=== PATIENT | male | born 1965 | race Caucasian/White ===

== ENCOUNTER 2022-05-25 20:22 | Inpatient (IN) | payer OTHER ==
[~2022-05-25] VITALS: Ht 188 cm; Wt 101.6 kg
[~2022-05-25 20:22] MED LIST: CARV12.548 PO; FURO-149 PO; METO5TAB9 PO; METR500T PO; POTA10TA15 PO; SULF1TAB48 PO; WARF5TAB2 PO
--- NOTE | 2022-05-25 20:30 | NUR ---
back from CT SCAN DEPT vitals updated pt in severe pain score 04/20.medicated as ordered
[2022-05-25 20:32] VITALS: BP_SYST 197
--- NOTE | 2022-05-25 20:40 | NUR ---
PT HERE FOR SEVER ABD PAIN WITH NAUSEA SINCE THIS AM. PER CHRISTOPHER AT BEDSIDE PT HAVE FEVER AND CHILLS AT HOME WEE. SHE STATED THAT HE HAS THE SAME SYMPTOMS WHEN HE WAS DX WITH SBO. PMh: SBO,PACEMAKER,DM,HTN, STASIS ULCER PT AAOX4 AT THIS TIME, ASSISTED TO ROOM VIA WHEELCHAIR, GOWNED AND PLACED IN CARDIAC MONITORS.
[2022-05-25 21:13] LABS: BASOPHILS % (AUTO) 0.2 % (0.0-2.0); EOSINOPHILS % (AUTO) 0.2 % (0.0-4.0); HEMATOCRIT 43.3 % (36-54); HEMOGLOBIN 14.6 g/dL (14.0-18.0); LYMPHOCYTES # (AUTO) 0.6 K/uL (1.0-5.5); LYMPHOCYTES % (AUTO) 2.8 % (20.5-51.5); MEAN CORPUSCULAR HEMOGLOBIN 28 pg (27-31); MEAN CORPUSCULAR HGB CONC 34 % (32-36); MEAN CORPUSCULAR VOLUME 82 fL (79.0-98.0); MONOCYTES # (AUTO) 0.8 K/uL (0.0-1.0); NEUTROPHILS # (AUTO) 18.4 K/uL (1.8-7.7); NEUTROPHILS % (AUTO) 92.8 % (40.0-70.0); PLATELET COUNT (AUTO) 192 K/uL (130-430); RED BLOOD CELL COUNT(AUTO) 5.29 MIL/uL (4.2-6.2); RED CELL DISTRIBUTION WIDTH 17.2 % (9.0-15.0); WHITE BLOOD COUNT (AUTO) 19.8 K/uL (4.8-10.8)
[2022-05-25] MEDS ORDERED: PIPERACILLIN/TAZO 3.375 GM in NS 50 ML IV ONE (21:45)
[2022-05-25] MEDS ORDERED: NS 500 ML IV ONE (22:00)
[2022-05-25] MEDS ORDERED: MORPHINE 4 MG INJ. 4 MG/ML VIAL IVP ONE (22:00)
[2022-05-25] MEDS ORDERED: ONDANSETRON HCL 4 MG/2 ML VIAL IVP ONE (22:00)
--- NOTE | 2022-05-25 22:00 | NUR ---
PT CLEANED AND LINEN CHANGED. BY BEDSIDE ,PT MEDICATED ORDERED
[2022-05-25] MEDS ORDERED: PIPERACILLIN/TAZOBACTAM 3.375 GM/VIAL (ZOSYN) IV ONE (22:16)
[2022-05-25 22:32] LABS: ANION GAP 8 (5-15); CALCIUM 8.7 mg/dL (8.4-11.0); CHLORIDE 98 mmol/L (98-107); CREATININE 1.27 mg/dL (0.55-1.30); GLUCOSE 136 mg/dL (70-99); SODIUM SERUM 133 mmol/L (136-145); UREA NITROGEN, BLOOD 14 mg/dL (8-21)
[2022-05-25 22:46] LABS: ALANINE AMINOTRANSFERASE 33 U/L (12-78); ALBUMIN 3.2 g/dL (3.4-4.8); ASPARTATE AMINOTRANSFERASE 31 U/L (10-37); TOTAL BILIRUBIN 1.9 mg/dL (0.0-1.0)
[2022-05-25] MEDS ORDERED: NACL 0.9% 1,000 ML IV ONE ×2 (23:00)
[2022-05-25] MEDS ORDERED: ACETAMINOPHEN 650 MG SUPP.RECT RC ONE (23:00)
[2022-05-25] MEDS ORDERED: ACETAMINOPHEN 325 MG SUPP.RECT RC ONE (23:00)
--- NOTE | 2022-05-25 23:00 | NUR ---
vitals done and charted .awaits labs
[2022-05-25 23:01] LABS: GFR AFRICAN AMERICAN 76 mL/min (>90)
--- NOTE | 2022-05-26 | NUR ---
PTS VITALS DONE ,SETTLED IN BED
--- NOTE | 2022-05-26 00:30 | NUR ---
Given a warm bedbath and linen changed .pt asleep
--- NOTE | 2022-05-26 00:41 | NUR ---
WOUND ON LEFT LEFT IRRIGATED WITH 50% BETADINE AND THEN STERILE SALINE. PREVIOUS 4X4 REMOVED. WOUND DRESSED WITH ADAPTIC GAUZE FOLLOWED BY GAUZE ROLL.
[2022-05-26] MEDS ORDERED: ACETAMINOPHEN 325 MG TABLET PO PRN (00:45)
[2022-05-26] MEDS ORDERED: INSULIN REGULAR, HUMAN 100 UNITS/ML, 10 ML VIAL (humuLIN R) SUBCUT PRN (00:45)
[2022-05-26] MEDS ORDERED: ONDANSETRON HCL 4 MG/2 ML VIAL IVP PRN (00:45)
[2022-05-26] MEDS ORDERED: cloNIDine HCL 0.1 MG TABLET PO PRN (00:45)
--- NOTE | 2022-05-26 00:51 | NUR ---
Admit bed requested Patient will be admitted to care of . Admitted to TELE unit. Diagnosis SEPSIS Inpatient (Yes or No) YES Observation (Yes or No) NO Orientation concerns or request close to nursing station (Yes or No) NO Covid Status NEGATIVE On vent or bipap NO Isolation requirements NO Needs a sitter NO From Home (Yes or if No enter name of facility) YES Requires Dialysis (Yes or No) NO Med Rec Completed (Yes of No) PENDING
[2022-05-26] MEDS: LR 1,000 ML IV SCH ×2 (01:28→12:55)
[2022-05-26] MEDS ORDERED: VANCOMYCIN HCL 1000 MG/VIAL IV ONE (01:39)
[2022-05-26] MEDS ORDERED: VANCOMYCIN HCL 1 GM/NS PREMIX 250 ML IV ONE (02:00)
--- NOTE | 2022-05-26 02:00 | NUR ---
PT SAYS HE FEELS ALITTLE BETTER AFTER RX ,TEMP 97.2
[2022-05-26] MEDS ORDERED: PIPERACILLIN/TAZO 3.375 GM in NS 50 ML IV SCH (06:00)
--- NOTE | 2022-05-26 06:00 | NUR ---
DUE RX GIVEN .VITALS UPDATED TEMP 97.5 LINEN CHANGED
--- NOTE | 2022-05-26 06:30 | NUR ---
PT HAD A SMALL BM, NO N/V
[2022-05-26] MEDS ORDERED: PIPERACILLIN/TAZOBACTAM 3.375 GM/VIAL (ZOSYN) IV ONE (06:39)
--- NOTE | 2022-05-26 07:12 | NUR ---
BLOOD SUGAR 85.PT HAS TAKEN X 2 ORANGE JUICE,APPLE JUICE AND JELLO
--- NOTE | 2022-05-26 07:30 | NUR ---
Assumed care of pt and pt is in bed resting with no s/s of distress. Connected to substation superintendent and VSS. Respirations even and unlabored. A&Ox4. Skin and cranial nerves intact. No sob and no chest pain. Denies n/v. Pt has a 20g on right hand and another 20g on left forearm intact no infiltration noted. Bed in lowest position and safety checks done.
--- NOTE | 2022-05-26 08:00 | NUR ---
Rechecked Temp and is at 99.5F. PRN tylenol will be given PO. Pt has no c/o.
--- NOTE | 2022-05-26 08:26 | NUR ---
Pt refusing breakfast at this time.
--- NOTE | 2022-05-26 09:00 | NUR ---
Removed blanket pt had on him and cooling measures provided to decrease fever pt has. Pt has no c/o. A&Ox4.
--- NOTE | 2022-05-26 09:30 | NUR ---
Dr. Yan at bedside assessing pt.
[2022-05-26] MEDS: VANCOMYCIN HCL 1,500 MG in NS 250 ML IV SCH ×2 (10:05→22:06)
--- NOTE | 2022-05-26 10:05 | NUR ---
Vancomycin initiated running at 125ml/hr to infuse over 2 hours. Pt has no c/o. VSS.
[2022-05-26 11:40] VITALS: BP_SYST 128
--- NOTE | 2022-05-26 11:55 | NUR ---
Patient will be admitted to care of Dr. Cabrera. Admitted to Tele unit. Will go to room 100A. Belongings list completed. Complete and up to date summary report printed. SBAR report to be given at bedside with opportunity for questions.
--- NOTE | 2022-05-26 12:00 | NUR ---
RECEIVED PT FROM ONESIMO VALDOVINOS. PT IS AAOX4. TELEMONITOR PLACED READING NSR. RESP E/U. ON R/A. ABDOMEN SOFT, NONTENDER, NONDISTENDED. BOWEL SOUNDS ACTIVE. BLE 3+ EDEMA WITH R LEG WOUND COVERED WITH DRESSING. BLE DRYNESS AND DISCOLORATION. DISTAL PULSES NORMAL. SKIN WARM. IV CATH TO RIGHT WRIST S/L. DRESSING CDR, SITE WNL. PT DENIES PAIN. ORIENTED TO ROOM AND CALL LIGHT. SIDERAILS UP X2.
--- NOTE | 2022-05-26 12:06 | NUR ---
CONSULTATION PAGED REASON FOR CONSULTATION SEPSIS WAS CONSULT CALED?Y PERSON WHO WAS NOTIFIED:JUAN DIEGO CONSULTING PHYSICIAN:GERARD [facility] INFORMATION MANAGERS SPECIALTY:ID HEALTH INFORMATION MANAGERS PHONE [phone]: REQUESTING PHYSICIAN:EMILY TORREZ
--- NOTE | 2022-05-26 12:45 | NUR ---
BS 80, NO INSULIN GIVEN PER RISS. PT EATING CLEAR LIQUID DIET AT THIS TIME. LR AT 30ML/HOUR INITIATED.
[2022-05-26] MEDS: PIPERACILLIN/TAZO 3.375 GM in NS 50 ML IV SCH ×2 (12:55→18:08)
[2022-05-26 13:43] LABS: INR 1.3 (0.80-1.20); PROTHROMBIN TIME 14.1 SECS (9.5-12.5)
--- NOTE | 2022-05-26 15:12 | NUR ---
JADA COOK NIGHT STATED SHE WILL MAKE DR. Sanchez AWARE OF NEED TO CONSULT THIS PT.
--- NOTE | 2022-05-26 15:50 | NUR ---
NOTES: RONEN Barbour placed consult with Dr. Marcial
[2022-05-26 16:00] VITALS: BP_SYST 132
[2022-05-26] MEDS: POTASSIUM CHLORIDE 10 MEQ TAB.PRT.SR PO SCH ×2 (16:52→21:02)
--- NOTE | 2022-05-26 17:46 | NUR ---
CONSULTATION PAGED REASON FOR CONSULTATION:LOW SATURATION WAS CONSULT CALED?Y PERSON WHO WAS NOTIFIED:CIARA CONSULTING PHYSICIAN:DWAINE LEOS PERFECT BIND MACHINE OPERATOR SPECIALTY:PULMONARY PERFECT BIND MACHINE OPERATOR PHONE NUMBER:[phone] REQUESTING PHYSICIAN:CYNDI PICKETT
[2022-05-26] MEDS ORDERED: IPRATROPIUM/ALBUTEROL SULFATE 3 ML AMPUL.NEB (DUONEB) ONE (17:54)
--- NOTE | 2022-05-26 18:12 | NUR ---
BS 94. NO INSULIN GIVEN PER RISS. SCHEDULED MED GIVEN. PT ON N/S AT 4LPM O2 SAT 98%. DENIES PAIN.
--- NOTE | 2022-05-26 18:12 | NUR ---
RT MADE AWARE PT HAS ORDER FOR BREATHING TX.
[2022-05-26] MEDS ORDERED: IPRATROPIUM/ALBUTEROL SULFATE 3 ML AMPUL.NEB (DUONEB) INH PRN (19:15)
[2022-05-26] MEDS: IPRATROPIUM/ALBUTEROL SULFATE 3 ML AMPUL.NEB (DUONEB) INH SCH (19:25)
--- NOTE | 2022-05-26 19:49 | NUR ---
RECEIVED ORDER FROM DR. MATT ARGUELLO STAT, VQ SCAN, US VENOUS BLE STAT, DUONEB PRN Q 2 HOURS. ORDERS CARRIED. ENDORSED PT TO ONESIMO GALLRADO AND MADE HER AWARE OF NEW ORDERS. ALL QUESTIONS AND CONCERNS ADDRESSED.
--- NOTE | 2022-05-26 20:01 | NUR ---
RECEIVED PT LYING IN BED, RR 28, O2 SAT99% ON 3L NC. IV TO LT WRIST AND RT HAND SITES CDI. EDEMA TO SCROTUM, BLE. DRSG TO RLE SMALL AMOUNT OF DRAINAGE NOTED, FOUL SMELL. WILL NEED TO DO DRSG CHANGE. WEAK PULSES TO BLE. DISCOLORIZTION NOTED TO BLE. Addendum: 05/26/22 at 2056 by [facility], ONESIMO ECHOLS 2044: WAS NOTIFIED PT IS POSITIVE FOR DVT, DR SABRINA ALONZO.
[2022-05-26] MEDS ORDERED: WARFARIN SODIUM 5 MG TABLET PO SCH (21:00)
[2022-05-26] MEDS: CARVEDILOL 12.5 MG TABLET (COREG) PO SCH (21:04)
--- NOTE | 2022-05-26 21:45 | NUR ---
CRITICAL LAB Positive DVT Dr. Deborah ford, notified Orders lovenox 1mg/kg q12h subq
[2022-05-26] MEDS: ENOXAPARIN SODIUM 100 MG/ML SYRINGE SUBCUT SCH (22:09)
--- NOTE | 2022-05-26 22:38 | NUR ---
2239: DR WORTHINGTON AT BEDSIDE, SHOWED HIM THE ABG RESULTS, NO NEW ORDERS. Addendum: 05/27/22 at 0516 by Onle Griffin RN RN 0400: WOUND CARE DONE TO RLE, PICTURES TAKEN.
[2022-05-27] VITALS (7 sets, daily range): BP systolic 114–142
[2022-05-27] MEDS: PIPERACILLIN/TAZO 3.375 GM in NS 50 ML IV SCH ×3 (00:48→12:32)
[2022-05-27] MEDS: IPRATROPIUM/ALBUTEROL SULFATE 3 ML AMPUL.NEB (DUONEB) INH SCH ×4 (01:39→20:01)
[2022-05-27] MEDS: POTASSIUM CHLORIDE 10 MEQ TAB.PRT.SR PO SCH ×3 (08:41→20:34)
[2022-05-27] MEDS: metOLazone 5 MG TABLET PO SCH (08:42)
[2022-05-27] MEDS: FUROSEMIDE 40 MG TABLET PO SCH (08:43)
[2022-05-27] MEDS: CARVEDILOL 12.5 MG TABLET (COREG) PO SCH ×2 (08:44→20:35)
[2022-05-27 08:58] LABS: BASOPHILS # (AUTO) 0.1 K/uL (0.0-0.2); BASOPHILS % (AUTO) 0.6 % (0.0-2.0); EOSINOPHILS % (AUTO) 0.1 % (0.0-4.0); HEMATOCRIT 40.3 % (36-54); HEMOGLOBIN 13.6 g/dL (14.0-18.0); MEAN CORPUSCULAR HEMOGLOBIN 28 pg (27-31); MEAN CORPUSCULAR HGB CONC 34 % (32-36); MEAN CORPUSCULAR VOLUME 82 fL (79.0-98.0); MONOCYTES # (AUTO) 0.4 K/uL (0.0-1.0); MONOCYTES % (AUTO) 4.5 % (1.7-9.3); NEUTROPHILS # (AUTO) 7.8 K/uL (1.8-7.7); NEUTROPHILS % (AUTO) 83.8 % (40.0-70.0); PLATELET COUNT (AUTO) 113 K/uL (130-430); RED BLOOD CELL COUNT(AUTO) 4.91 MIL/uL (4.2-6.2); RED CELL DISTRIBUTION WIDTH 17.2 % (9.0-15.0); WHITE BLOOD COUNT (AUTO) 9.3 K/uL (4.8-10.8)
[2022-05-27] MEDS ORDERED: *LOVENOX 1MG/KG Q12H/PHARMACY XX SCH (09:00)
[2022-05-27 09:17] LABS: ALBUMIN 2.3 g/dL (3.4-4.8); CALCIUM 7.9 mg/dL (8.4-11.0); POTASSIUM 3.8 mmol/L (3.5-5.1); TOTAL BILIRUBIN 0.8 mg/dL (0.0-1.0)
[2022-05-27 09:26] LABS: CREATININE 1.27 mg/dL (0.55-1.30)
[2022-05-27 09:52] LABS: INR 1.3 (0.80-1.20); PROTHROMBIN TIME 13.2 SECS (9.5-12.5)
[2022-05-27] MEDS: ENOXAPARIN SODIUM 100 MG/ML SYRINGE SUBCUT SCH ×2 (10:03→21:21)
[2022-05-27] MEDS: VANCOMYCIN HCL 1,500 MG in NS 250 ML IV SCH ×2 (10:04→21:21)
--- NOTE | 2022-05-27 10:29 | NUR ---
CONSULTATION PAGED REASON FOR CONSULTATION:CHF WAS CONSULT CALLED?Y -PERSON WHO WAS NOTIFIED:EXCHANGE CONSULTING PHYSICIAN:ANGE SAHA HARNESS TIER SPECIALTY:CARDIO HARNESS TIER PHONE NUMBER:[phone] REQUESTING PHYSICIAN:CANDELARIA TORREZ
--- NOTE | 2022-05-27 10:36 | NUR ---
0800 PT IN BED A/OX4. RES EVENA ND UNLABORED. ON 2 L OXYGEN SATURATION 96%. MILD SOB NOTED. NOT IN ACUTE RES DISTRESS. HOB ELEVATED. SAFTEY AND FALL PRECAUTIONS IN PLACE. IVF INFUSING WELL ORDERED. WILL CONTINUE TO MONITOR 1000- NUCLEAR MED IS DOWN PER RADIOLOGY , PT SCHEDULED TO HAVE VQ SCAN.UNABLE TO O THIS TIME. CALLED DR GUTIERREZ AND NOTIFIED ABOUT IT. NO NEW ORDERED RECEIVED
[2022-05-27] MEDS: LR 1,000 ML IV SCH (13:28)
--- NOTE | 2022-05-27 16:00 | NUR ---
pt stable notin acute distress. ambulated to bathroom with steady gait. denies any sob. needs attended
--- NOTE | 2022-05-27 17:45 | NUR ---
CONSULTATION PAGED REASON FOR CONSULTATION:WOUND TREATMENT AND BX WAS CONSULT CALLED?Y -PERSON WHO WAS NOTIFIED:NICKY CONSULTING PHYSICIAN:AMY BUENO MANAGER COMMUNITY RELATIONS SPECIALTY:SURGEON MANAGER COMMUNITY RELATIONS PHONE NUMBER:[phone] REQUESTING PHYSICIAN:CANDELARIA TORREZ
--- NOTE | 2022-05-27 17:52 | NUR ---
CONSULTATION PAGED REASON FOR CONSULTATION:ABNORMAL CT ABDOMEN WAS CONSULT CALLED?Y -PERSON WHO WAS NOTIFIED:PASTORA CONSULTING PHYSICIAN:PRAVEENA RAMIRES ( WOOD SCRAP HANDLER) PRODUCTION LEADER SPECIALTY:GI PRODUCTION LEADER PHONE NUMBER:[phone] REQUESTING PHYSICIAN:EMILY TORREZ MEDICARE PT A ONLY INSURANCE
--- NOTE | 2022-05-27 18:03 | NUR ---
CONSULTATION PAGED REASON FOR CONSULTATION:CARDIAC CLEARANCE FOR SURGERY WAS CONSULT CALLED?Y -PERSON WHO WAS NOTIFIED:VEE RAJPUT INFOMRED CONSULTING PHYSICIAN:VEE RAJPUT HYDRATE THICKENER OPERATOR SPECIALTY:CARDIO HYDRATE THICKENER OPERATOR PHONE NUMBER:[phone] REQUESTING PHYSICIAN:CANDELARIA TORREZ
--- NOTE | 2022-05-27 19:43 | NUR ---
closing notes PT IN BED A/OX4. RES EVENA ND UNLABORED. ON 2 L OXYGEN SATURATION 96%. MILD SOB NOTED. NOT IN ACUTE RES DISTRESS. HOB ELEVATED. SAFTEY AND FALL PRECAUTIONS IN PLACE. IVF INFUSING WELL ORDERED.NEEDS ATTENDED . REPORT GIVEN TO NIGHT NURSE
[2022-05-27] MEDS: metroNIDAZOLE 500 mg/NS 100 ML IV SCH (21:21)
[2022-05-27] MEDS: HYDROcodone/ACETAMIN 10-325 MG TAB PO PRN (22:47)
[2022-05-28] VITALS: BP_SYST 130
[2022-05-28] MEDS: IPRATROPIUM/ALBUTEROL SULFATE 3 ML AMPUL.NEB (DUONEB) INH SCH ×4 (05:44→19:57)
[2022-05-28] MEDS: metroNIDAZOLE 500 mg/NS 100 ML IV SCH ×3 (06:39→21:18)
[2022-05-28] MEDS: MORPHINE 4 MG INJ. 4 MG/ML VIAL IVP PRN ×3 (06:49→21:27)
[2022-05-28 06:58] LABS: ALBUMIN 2.2 g/dL (3.4-4.8); CALCIUM 8.2 mg/dL (8.4-11.0); CREATININE 0.9 mg/dL (0.55-1.30); POTASSIUM 3.3 mmol/L (3.5-5.1); THYROID STIMULATING HORMONE 1.89 uIu/mL (0.36-3.74); TOTAL BILIRUBIN 0.7 mg/dL (0.0-1.0)
[2022-05-28 08:00] VITALS: BP_SYST 131
--- NOTE | 2022-05-28 08:00 | NUR ---
OPENING NOTE Patient awake sitting up in bed eating breakfast. No sign of distress and patient states that his pain is 2/10. IV sites are clean, dry, intact, and running prescribed fluids. Patient denies any nausea. Wound dressing is clean, dry, and intact. All needs met at this time and safety checks made.
[2022-05-28 09:10] LABS: INR 1.3 (0.80-1.20); PROTHROMBIN TIME 13.8 SECS (9.5-12.5)
[2022-05-28] MEDS: metOLazone 5 MG TABLET PO SCH (09:29)
[2022-05-28] MEDS: POTASSIUM CHLORIDE 10 MEQ TAB.PRT.SR PO SCH ×3 (09:29→21:18)
[2022-05-28] MEDS: FUROSEMIDE 40 MG TABLET PO SCH (09:30)
[2022-05-28] MEDS: ENOXAPARIN SODIUM 100 MG/ML SYRINGE SUBCUT SCH ×2 (09:30→21:18)
[2022-05-28] MEDS: CARVEDILOL 12.5 MG TABLET (COREG) PO SCH ×2 (09:30→21:18)
[2022-05-28] MEDS: VANCOMYCIN HCL 1,500 MG in NS 250 ML IV SCH ×2 (10:19→21:17)
--- NOTE | 2022-05-28 11:51 | NUR ---
NPO Patient made NPO per Dr Caban. Patient is aware and verbalized understanding.
[2022-05-28 12:06] VITALS: BP_SYST 123
--- NOTE | 2022-05-28 12:30 | NUR ---
AT BEDSIDE Dr Caban at bedside to see the patient. Per MD, wound debridement is not necessary at this time. Diet resumed.
[2022-05-28] MEDS: LR 1,000 ML IV SCH (13:28)
--- NOTE | 2022-05-28 15:00 | NUR ---
WOUND EVALUATION: Late note for 05/28/2022 at 1500 secondary to patient care. Wound Consult received from Dr. Cabrera. Thank you, Dr. Cabrera, for the consult. Patient received in a Mallard Bed with an IsoFlex DEEPIKA mattress, awake, alert, and oriented. Patient is able to turn in bed independently. Mariano Score is a 17. Past Medical History: Cardiomyopathy, Diabetes Mellitus, Chronic Atrial Fibrillation, history of pacemaker implant, dilated CMP, Chronic CHF, Hypertension, Venous Stasis of both lower legs with ulceration of right lower leg maintained on warfarin for DVT and PE, with recent skin graft to the right distal anterior leg about 2 months ago. Recent Labs: WBC 9.3, RBC 4.91, hemoglobin 13.6, hematocrit 40.3, platelets 113, sodium 134, potassium 3.3, calcium 8.2, AST 60, BNP 217, POC glucose 136, albumin 2.2, Glucose 90. Intrinsic factors that delay wound healing: Cardiomyopathy, Diabetes Mellitus, Chronic Atrial Fibrillation, Venous Stasis of both lower legs, Hyperglycemia, Hypoalbuminemia. Extrinsic factors that delay wound healing: Decreased mobility. Microbiology: Miscellaneous culture results positive for MRSA and Strep Angino/S Dysgalac (GRP C). Patient said that he has been seeing a doctor in outpatient setting for his right lower extremity ulcer. He said that the doctor wanted him to keep the wound dry and the eschar with, and that he would follow-up with that doctor soon. Wound Assessment: 1. Right Distal Anterior Garcia: Acute on chronic venous insufficiency ulcer with recent skin graft about 2 months ago, present on admission. Wound bed has 70% black eschar, 20% yellow slough, 10% red tissue. No odor, scant sanguineous drainage. Periwound intact. Wound measures 12.2 cm x 8.5 cm. Recommend: [place] wound with Betadine, allow Betadine to air dry. Apply SurePrep to gulshan-wound. Cover site with nonadhesive foam dressing. Wrap with Hua wrap. Perform wound care daily, and as needed for dressing soiling or dislodgement. Also recommend: Encourage and assist patient as needed with repositioning every 2 hours with pillow support and off-load pressure areas with pillows for pressure re-distribution. Offload, elevate and float bilateral heels with pillows. Perform skin care and monitor skin integrity Q shift.
[2022-05-28 16:00] VITALS: BP_SYST 119
--- NOTE | 2022-05-28 16:25 | NUR ---
IV REMOVED IV on left wrist became infiltrated and painful. Removed and intact, no active bleeding. Patient tolerated well. All needs met at this time and safety checks made.
--- NOTE | 2022-05-28 19:15 | NUR ---
CLOSING NOTE Patient sitting in bed resting after eating dinner. No sign of distress, patient states that his pain is 8/10 at this time but does not want pain medications at this time. Patient able to ambulate with steady gait to the restroom. Dressing on right lower leg is clean, dry, and intact. Nasal cannula in place on 2L, oxygen saturation 95%. Patient was given medical release forms to request charts from [facility] [place], patient states he will fill them out with his this evening. Night nurse is aware and will follow up. All needs met at this time and safety checks made. Endorsed to social work coordinator nurse.
--- NOTE | 2022-05-28 19:30 | NUR ---
Opening note Received report from day shift nurse. Pt is awake lying in bed with at bedside. No s/s of respiratory distress. Breathing even and unlabored on 2L nasal cannula saturating 96-97%. Iv site intact and patent saline lock. Fall and safety precautions in place with bed in lowest position and call light within reach
[2022-05-28 20:00] VITALS: BP_SYST 125
[2022-05-29] VITALS: BP_SYST 123
--- NOTE | 2022-05-29 00:15 | NUR ---
Rounds Pt resting in bed, eyes closed. No s/s of acute distress. VSS. Fall and safety checks in place
[2022-05-29] MEDS: IPRATROPIUM/ALBUTEROL SULFATE 3 ML AMPUL.NEB (DUONEB) INH SCH ×4 (01:09→19:47)
[2022-05-29] MEDS: metroNIDAZOLE 500 mg/NS 100 ML IV SCH ×3 (06:08→21:13)
--- NOTE | 2022-05-29 06:57 | NUR ---
Closing note Pt resting in bed, eyes closed. No s/s of respiratory distress. Breathing even and unlabored on nasal cannula. IV site intact and patent saline lock. Fall and safety precautions in place with bed in lowest position, bed alarm on,and call light within reach. All need met throughout shift. Will endorse care to day shift nurse
[2022-05-29 07:45] LABS: BASOPHILS % (AUTO) 0.4 % (0.0-2.0); EOSINOPHILS # (AUTO) 0.2 K/uL (0.0-0.4); EOSINOPHILS % (AUTO) 1.4 % (0.0-4.0); HEMATOCRIT 42.6 % (36-54); HEMOGLOBIN 14.6 g/dL (14.0-18.0); LYMPHOCYTES # (AUTO) 1.9 K/uL (1.0-5.5); LYMPHOCYTES % (AUTO) 15.8 % (20.5-51.5); MEAN CORPUSCULAR HEMOGLOBIN 28 pg (27-31); MEAN CORPUSCULAR HGB CONC 34 % (32-36); MEAN CORPUSCULAR VOLUME 81 fL (79.0-98.0); MONOCYTES # (AUTO) 1.3 K/uL (0.0-1.0); NEUTROPHILS # (AUTO) 8.5 K/uL (1.8-7.7); NEUTROPHILS % (AUTO) 71.4 % (40.0-70.0); PLATELET COUNT (AUTO) 128 K/uL (130-430); RED BLOOD CELL COUNT(AUTO) 5.27 MIL/uL (4.2-6.2); RED CELL DISTRIBUTION WIDTH 16.8 % (9.0-15.0)
[2022-05-29 08:00] VITALS: BP_SYST 114
[2022-05-29 08:08] LABS: INR 1.1 (0.80-1.20); PROTHROMBIN TIME 11.5 SECS (9.5-12.5)
[2022-05-29 08:22] LABS: ALBUMIN 2.5 g/dL (3.4-4.8); CALCIUM 8.4 mg/dL (8.4-11.0); CREATININE 0.92 mg/dL (0.55-1.30); POTASSIUM 3.7 mmol/L (3.5-5.1); TOTAL BILIRUBIN 0.7 mg/dL (0.0-1.0)
[2022-05-29] MEDS: CARVEDILOL 12.5 MG TABLET (COREG) PO SCH ×2 (09:03→21:13)
[2022-05-29] MEDS: FUROSEMIDE 40 MG TABLET PO SCH (09:03)
[2022-05-29] MEDS: metOLazone 5 MG TABLET PO SCH (09:04)
[2022-05-29] MEDS: ENOXAPARIN SODIUM 100 MG/ML SYRINGE SUBCUT SCH ×2 (09:04→21:14)
[2022-05-29] MEDS: POTASSIUM CHLORIDE 10 MEQ TAB.PRT.SR PO SCH ×3 (09:04→21:12)
[2022-05-29] MEDS: VANCOMYCIN HCL 1,500 MG in NS 250 ML IV SCH ×2 (09:04→23:57)
[2022-05-29] MEDS ORDERED: DIATR MEGLU/DIATRIZ SOD 30 ML SOLUTION PO ONE (09:07)
[2022-05-29] MEDS: MORPHINE 4 MG INJ. 4 MG/ML VIAL IVP PRN ×2 (09:10→21:25)
[2022-05-29] MEDS ORDERED: iohexoL 350 mgI/mL, 100 ML INFUS..BTL IV ONE (11:20)
[2022-05-29 12:00] VITALS: BP_SYST 122
--- NOTE | 2022-05-29 15:18 | NUR ---
Nutrition Assessment Nutritional Screening High Risk Screening Admitting Diagnosis: Sepsis Reviewed Pertinent Medical/Surgical Hx Medical Record Patient Medical History Comment: PMH: Chronic A.fib, hx pacemaker placement, CHF - chronic systolic and diastolic, dilated CMP s/p stent, DM, HTN, cardiomyopathy, venous statis BL-lower legs with ulceration of R-lower leg, on warfarin for DVT/PE. Subjective Information Per EMR: 56yM who presented to ED with worsening wound. 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 Patient reports increased pain, erythema, and drainage that is malorodous. Pt is also reporting generalized weakness. Patient was found to be septic in ED and admitted to telemetry. RD spoke with patient at bedside. Patient endorses a following a regular diet at home and states he doesn't eat or like "vegetables- onions or green things"; Usual intake includes occasionally breakfast, but most days 1 large dinner and multiple snacks/small meals throughout the day. Per pt, LBM 05/28. Patient states he "is not diabetic" and he does not understand why an MD he saw recently said he is. RD will continue to monitor. Current Diet Order/Nutrition Support: Consistent CHO x 1 day Patient/Significant Other Able To Verbalize Education Provided Indicated Pertinent Medications Morphine, metronidazole, lasixm metolazone, lovenox, K-dur, abx, norco Pertinent Labs WBC 12 H, BG 118 H, POC BG 111H, BNP 141 H, CO2 30H, Alb 2.5 L, h/h WNL Height (Feet) 6 feet Height (Inches) 2.00 inches Weight (Pounds) 224 pounds Weight (Calculated Kilograms) 101.818244 kilograms Patient Weight 101.605 kg Body Mass Index 28.76 kg/m2 %IBW 118 [place]/Adjusted Body Weight 190lbs/ 86.4kg Recent Weight Change No Weight Status Overweight Gastrointestinal Symptoms None Last BM May 28, 2022 Food Allergies No Usual Diet At Home Regular Skin Integrity Comment: Mariano 18: - Lower leg discoloration - Lower R-leg wound: s/p skin graft x 2 months. Now w/ increased pain, erythema, and malodorous drainage Current % PO Good (75-100%) Estimated Energy Expenditure (kcals/day) 4448-7907 (25-30 kcal/kg IBW d/t wound, overweight BMI) Estimated Protein Required (g/day) 103-129 (1.2-1.5 g/kg IBW d/t wound, overweight BMI) Estimated Fluid Required (l/day) 2.1-2.5 (1mL/kcal for wound, maintenance) Problem/Etiology/Signs/Symptoms * Increased nutrient utilization r/t wound healing a/e/b lower right leg discoloration and wound with malodorous drainage Expected Outcomes/Goals PO intake provides >85% estimated nutrient needs, nutrition-related labs WNL, improvements in skin integrity, BM q 1-3 days Dietitian Recommendations * Continue [facility] diet, as tolerated * Rec initiate woundcare supplements: daily MVI, 250mg VIT C BID, 220mg zincate BID x 14 days, Nathan BID * Rec daily Glucerna ONS Follow Up High Risk: F/U in 2-3days Follow Up By Jun 01, 2022 Alert Not Indicated Addendum: 05/29/22 at [address] Amended: Links added.
--- NOTE | 2022-05-29 15:21 | NUR ---
Dietitian Recommendations * Continue CCHO diet, as tolerated * Rec initiate woundcare supplements: daily MVI, 250mg VIT C BID, 220mg zincate BID x 14 days, Nathan BID * Rec daily Glucerna ONS Please refer to Nutrition Assessment for details, thanks! CC, MPH, RDN
[2022-05-29 16:00] VITALS: BP_SYST 131
[2022-05-29 20:50] VITALS: BP_SYST 134
[2022-05-30 00:27] VITALS: BP_SYST 119
[2022-05-30 06:20] LABS: BASOPHILS # (AUTO) 0.1 K/uL (0.0-0.2); BASOPHILS % (AUTO) 0.7 % (0.0-2.0); EOSINOPHILS # (AUTO) 0.1 K/uL (0.0-0.4); EOSINOPHILS % (AUTO) 1.6 % (0.0-4.0); HEMATOCRIT 41.6 % (36-54); HEMOGLOBIN 14.3 g/dL (14.0-18.0); LYMPHOCYTES # (AUTO) 2.1 K/uL (1.0-5.5); MEAN CORPUSCULAR HEMOGLOBIN 28 pg (27-31); MEAN CORPUSCULAR HGB CONC 34 % (32-36); MEAN CORPUSCULAR VOLUME 81 fL (79.0-98.0); MONOCYTES # (AUTO) 1.2 K/uL (0.0-1.0); MONOCYTES % (AUTO) 13.1 % (1.7-9.3); NEUTROPHILS # (AUTO) 5.7 K/uL (1.8-7.7); NEUTROPHILS % (AUTO) 61.6 % (40.0-70.0); PLATELET COUNT (AUTO) 171 K/uL (130-430); RED BLOOD CELL COUNT(AUTO) 5.17 MIL/uL (4.2-6.2); RED CELL DISTRIBUTION WIDTH 16.9 % (9.0-15.0); WHITE BLOOD COUNT (AUTO) 9.2 K/uL (4.8-10.8)
[2022-05-30] MEDS: metroNIDAZOLE 500 mg/NS 100 ML IV SCH ×3 (06:27→21:02)
[2022-05-30] MEDS: MORPHINE 4 MG INJ. 4 MG/ML VIAL IVP PRN ×3 (06:40→21:02)
[2022-05-30] MEDS: IPRATROPIUM/ALBUTEROL SULFATE 3 ML AMPUL.NEB (DUONEB) INH SCH ×3 (07:15→19:46)
--- NOTE | 2022-05-30 07:20 | NUR ---
RN OPENING NOTE REPORT WAS ENDORSED BY NIGHT NURSE. PATIENT IS AWAKE AND ALERT SITTING UP IN BED. PATIENT EDUCATED PNEUMATIC TUBE OPERATOR LIGHT FOR ASSISTANCE. CALL LIGHT IS WITH HIM. PATIENT HAS NO COMPLAINTS AT THIS TIME.
[2022-05-30 08:00] VITALS: BP_SYST 121
[2022-05-30 08:05] LABS: ALBUMIN 2.5 g/dL (3.4-4.8); CALCIUM 8.6 mg/dL (8.4-11.0); CREATININE 1.01 mg/dL (0.55-1.30); POTASSIUM 3.6 mmol/L (3.5-5.1); TOTAL BILIRUBIN 0.7 mg/dL (0.0-1.0)
[2022-05-30] MEDS: POTASSIUM CHLORIDE 10 MEQ TAB.PRT.SR PO SCH ×3 (09:12→21:03)
[2022-05-30] MEDS: FUROSEMIDE 40 MG TABLET PO SCH (09:13)
[2022-05-30] MEDS: metOLazone 5 MG TABLET PO SCH (09:13)
[2022-05-30] MEDS: CARVEDILOL 12.5 MG TABLET (COREG) PO SCH ×2 (09:14→21:03)
[2022-05-30] MEDS: ENOXAPARIN SODIUM 100 MG/ML SYRINGE SUBCUT SCH ×2 (09:14→21:32)
[2022-05-30] MEDS: VANCOMYCIN HCL 1,500 MG in NS 250 ML IV SCH ×2 (09:15→21:02)
[2022-05-30 09:36] LABS: INR 1.2 (0.80-1.20)
--- NOTE | 2022-05-30 09:37 | NUR ---
medication patients scheduled medication given per order. patient educated cotton ginner helper light for assistance. call light is with him. provided with ice water. urinal emptied. no other needs at this time.
[2022-05-30 11:27] VITALS: BP_SYST 117
--- NOTE | 2022-05-30 11:28 | NUR ---
Accu check patients Accu check done, no coverage needed. patient has all safety precautions in place. Call light is with him educated to use call light for assistance. no other needs at this time. patient's iv catheter removed to right forearm catheter intact applied gauze and tape to insertion site
--- NOTE | 2022-05-30 13:47 | NUR ---
medication/ iv site Patient complains of pain medicated per order. iv site has swelling and pain, removed IV catheter to right wrist catheter intact, applied gauze and tape to insertion site. New iv site obtained to left FA 20g good blood return flushing well. receiving breathing treatment at this time. call light is with him educted to use for assistance. no other needs at this time. call light is with him.
[2022-05-30 15:41] LABS: BILIRUBIN,URINE NEGATIVE (NEGATIVE); BLOOD, URINE NEGATIVE (NEGATIVE); CLARITY/URINE CLEAR (CLEAR); COLOR,URINE YELLOW (YELLOW); GLUCOSE,URINE NEGATIVE (NEGATIVE); KETONES,URINE NEGATIVE (NEGATIVE); LEUKOCYTE ESTERASE ,URINE NEGATIVE (NEGATIVE); NITRITE, URINE NEGATIVE (NEGATIVE); PROTEIN URINE NEGATIVE (NEGATIVE)
--- NOTE | 2022-05-30 15:46 | NUR ---
WOUND CARE PATIENTS WOUND CARE DONE PER ORDER. PATIENT IS AWAKE AND ALERT. PATIENT HAS NO COMPLAINTS AT THIS TIME. CALL LIGHT IS WITH HIM EDUCATED TO USE FOR ASSISTANCE.
[2022-05-30 16:29] VITALS: BP_SYST 125
--- NOTE | 2022-05-30 19:13 | NUR ---
rn closing note patient is awake and alert no signs of any distress, patient requested turkey sandwiches refusing dinner tray. patient educated meat products demonstrator light for assistance. call light is with him. patient has no other needs at this time. report was endorsed to night nurse.
--- NOTE | 2022-05-30 19:30 | NUR ---
PM ASSESSMENT; -Pt is a/xo4, resting in bed comfortably. Pt denies any chest pain,pain,sob,or any acute distress. IV site of LFA patent, no s/s any infiltration after flushed w/ NS, drsg cdi. Taught & discussed poc,all safety measures, and to inform nurse if experiencing any distress or needs assistance and NPO after midnight for lap robotic assisted ross inguinal hernia repair tomorrow, pt verbalized understanding. Pt is able to use call light whenever needs assistance, pt shows good return demonstration. Drsg wound of rt LE cdi. Call light w/in reach. Side rails x2. MRSA contact in place. Cont to monitor pt.
[2022-05-30 19:40] VITALS: BP_SYST 135
--- NOTE | 2022-05-30 21:02 | NUR ---
PAIN MGMT; -Pt is c/o rt LE and hernia pain, gave Morphine 4mg IVP given upon pt 's request. All safety measures in place. Call light w/in reach. Cont to monitor pt.
--- NOTE | 2022-05-30 21:33 | NUR ---
NOTES; HOLD LOVENOX TODAY PER DR. AMOR B/C PT WILL HAVE INGUINAL HERNIA REPAIR TOMORROW AND PT AWARED ALREADY DURING DAY SHIFT.
--- NOTE | 2022-05-30 23:30 | NUR ---
NOTES; OFFERED SNACK AND FOOD -PT DRANK 2 JUICES CUPS ONLY, ATE SANDWICH EARLIER. WILL REMIND PT TO NPO STATUS. CONT TO MONITOR PT.
[2022-05-31] VITALS: BP_SYST 121
--- NOTE | 2022-05-31 | NUR ---
ROUNDS; NPO STATUS IN PLACE -Pt awakes, denies any chest pain,sob,pain,or any acute distress. Removed all food, snacks, and fluids away from pt after reminded pt to be NPO status for hernia repair tomorrow, pt verbalized understanding. All safety measures in place. Call light w/in reach. Cont to monitor pt.
[2022-05-31] MEDS: IPRATROPIUM/ALBUTEROL SULFATE 3 ML AMPUL.NEB (DUONEB) INH SCH ×4 (01:00→20:16)
--- NOTE | 2022-05-31 02:05 | NUR ---
ROUNDS; SWABBED RAPID COVID TEST AND MRSA NARES AND SENT TO LAB -Pt awakes, laying in bed comfortably. Pt denies any pain,sob, or any acute distress. Emptied 600 ml of aneta urine from urinal. All safety measures in place. Call light w/in reach. Cont to monitor pt.
--- NOTE | 2022-05-31 04:36 | NUR ---
ROUNDS; -Pt is asleep. NO s/s any pain,sob, or any acute distress noted. All safety measures in place. Side rails x3. Call light w/in reach. Cont to monitor pt.
[2022-05-31] MEDS: metroNIDAZOLE 500 mg/NS 100 ML IV SCH ×3 (05:30→21:06)
--- NOTE | 2022-05-31 05:45 | NUR ---
NOTES; BLOOD YGIBN=963,NO SSI COVERAGE AND CHG PROVIDED
[2022-05-31] MEDS: MORPHINE 4 MG INJ. 4 MG/ML VIAL IVP PRN ×2 (06:09→21:06)
--- NOTE | 2022-05-31 06:09 | NUR ---
PAIN MGMT; -Pt is c/o RLE & hernia pain 10/10 sharp,pulling,and throbbing,gave Morphine Sulfate 4mg IVP upon pt's request. Will reassess pain level w/in 30 mins.
--- NOTE | 2022-05-31 06:30 | NUR ---
CLOSING NOTES; PAGED DR. AMOR REGARDING AM EKG SHOW A-FIB & A-FLUTTER IF NEEDS DR. ZAPIEN FOR CARDIAC CLEARANCE PRIOR HERNIA REPAIR AROUND 1000 TODAY. SURGERY SCHEDULED AROUND 1000 PER MORNING CAREGIVER. -Pt is resting in bed comfortably. Pt denies any chest pain,pain,sob,or any acute distress. Pt stated," I am just tired that all." IV site of LFA patent, no s/s any infiltration after flushed w/ NS, drsg cdi. Drsg wound of rt LE cdi. Call light w/in reach. Side rails x2. MRSA contact in place. Will endorse to next nurse to cont care.
--- NOTE | 2022-05-31 06:52 | NUR ---
NOTES; SPOKE WITH DR. AMOR REGARDING AM EKG RESULT SHOW A-FIB AND A-FLUTTER PACED WITH 67. STATED THAT DR. ZAPIEN SAW PT YESTER AND TALKED TO HIM AND CARDIAC CLEARANCE. AFTER RE-VERIFIED AM EKG RESULT, DR. AMOR SUGGESTED DR. ZAPIEN TO SEE PT FOR CARDIAC CLEARANCE REGARDING THIS AM EKG RESULT OF A-FIB & A-FLUTTER WITH HR=[address] ZAPIEN NOW
--- NOTE | 2022-05-31 07:06 | NUR ---
NOTES; SPOKE WITH JAMAL-CLEANER WALL TO PAGE DR. ZAPIEN PAGED DR. ZAPIEN REGARDING CARDIAC CLEARANCE REGARDING AM EKG RESULT SHOWS A-FIB & A-FLUTTER WITH HR=67 PACED. WAITING FOR MD TO RETURN CALLBACK. WILL ENDORSE TO DAY SHIFT NURSE TO FOLLOW UP
[2022-05-31] MEDS: ENOXAPARIN SODIUM 100 MG/ML SYRINGE SUBCUT SCH ×2 (07:26→21:07)
[2022-05-31 08:00] VITALS: BP_SYST 121
[2022-05-31 09:35] LABS: INR 1.1 (0.80-1.20); PROTHROMBIN TIME 11.7 SECS (9.5-12.5)
[2022-05-31] MEDS: VANCOMYCIN HCL 1,500 MG in NS 250 ML IV SCH ×2 (09:51→21:07)
--- NOTE | 2022-05-31 10:30 | NUR ---
Surgery cancelled, diet resumed.
[2022-05-31 11:30] LABS: INR 1.1 (0.80-1.20); PROTHROMBIN TIME 11.5 SECS (9.5-12.5)
[2022-05-31 12:00] VITALS: BP_SYST 120
[2022-05-31] MEDS: CARVEDILOL 12.5 MG TABLET (COREG) PO SCH ×2 (12:30→21:05)
[2022-05-31] MEDS: FUROSEMIDE 40 MG TABLET PO SCH (12:30)
[2022-05-31] MEDS: metOLazone 5 MG TABLET PO SCH (12:30)
[2022-05-31] MEDS: POTASSIUM CHLORIDE 10 MEQ TAB.PRT.SR PO SCH ×3 (12:30→21:05)
[2022-05-31] MEDS: HYDROcodone/ACETAMIN 5-325 MG TAB (NORCO/ VICODIN) PO PRN ×2 (13:11→17:47)
--- NOTE | 2022-05-31 13:30 | NUR ---
Obtained informed consent for PICC line placement, for vancomycin x 2 weeks. Pt verbalized understanding.
--- NOTE | 2022-05-31 14:59 | NUR ---
CM: informed dr. Cabrera, the HH for IV meds and wound care can not be done till Thursday. Abdiaziz is clolsed during weekend. The Md spoke with patient about the dc plan. The pt decides to leave AMA. ONESIMO sommer.
--- NOTE | 2022-05-31 15:02 | NUR ---
Dispo code 07 AMA
--- NOTE | 2022-05-31 15:30 | NUR ---
After discussing risks of leaving AMA, pt decided to stay. PICC line to right arm placed by PICC line nurse, pt tolerated well. CXR done and placement confirmed. Will continue to monitor pt closely.
[2022-05-31 16:00] VITALS: BP_SYST 129
--- NOTE | 2022-05-31 18:49 | NUR ---
Pt calm, no changes. PICC line patent w/o signs of infiltration.
[2022-05-31 19:40] VITALS: BP_SYST 114
--- NOTE | 2022-05-31 19:40 | NUR ---
PM ASSESSMENT; -Pt is a/xo4, resting in bed comfortably. Pt denies any chest pain,pain,sob,or any acute distress. CINDY PICC line with 2 ports, good blood return, patent, no s/s any infiltration after flushed w/ NS, drsg cdi. Taught & discussed poc,all safety measures, and to inform nurse if experiencing any distress or needs assistance to call nurse, pt verbalized understanding. Pt is able to use call light whenever needs assistance, pt shows good return demonstration. Drsg wound of rt LE cdi. Call light w/in reach. Side rails x2. MRSA contact in place. Cont to monitor pt.
--- NOTE | 2022-05-31 22:39 | NUR ---
ROUNDS; -Pt awakes, laying in bed comfortably. Pt denies any chest pain,pain,sob,or any acute distress. Spouse is at bedside. Vancomycin infusing of CINDY PICC line. Call light w/in reach. Side rails x2. MRSA contact in place. Cont to monitor pt.
[2022-06-01 00:59] VITALS: BP_SYST 122
[2022-06-01] MEDS: IPRATROPIUM/ALBUTEROL SULFATE 3 ML AMPUL.NEB (DUONEB) INH SCH ×4 (01:00→19:00)
[2022-06-01] MEDS: MORPHINE 4 MG INJ. 4 MG/ML VIAL IVP PRN ×3 (01:02→23:01)
--- NOTE | 2022-06-01 01:02 | NUR ---
ROUNDS-PAIN MGMT; -Pt awakes,laying in bed. Pt is c/o rt LE &hernia pain,gave Morphine 4mg IVP.Will reassess pain level w/in 30 mins. Call light w/in reach, side rail x2. Cont to monitor pt.
--- NOTE | 2022-06-01 01:07 | NUR ---
NOTES; PT REFUSED RLE DRESSING CHANGE THIS TIME -Pt stated," I don't dressing change now, maybe later in the morning." Reminded pt that will ask again later around 0530,pt verbalized understanding.
--- NOTE | 2022-06-01 02:45 | NUR ---
ROUNDS; -Pt is asleep. No s/s any acute distress noted. Call light w/in reach. Cont to monitor pt.
--- NOTE | 2022-06-01 04:07 | NUR ---
ROUNDS; -Pt is asleep. No s/s any acute distress noted. Side rails x2. Call light w/in reach. Cont to monitor pt.
[2022-06-01] MEDS: metroNIDAZOLE 500 mg/NS 100 ML IV SCH ×3 (06:21→20:56)
--- NOTE | 2022-06-01 07:01 | NUR ---
CLOSING NOTES; PAIN MGMT & DRSG CHANGED -Pt is c/o RLE & hernia pain, gave Morphine IVP for pain mgmt. CINDY PICC line with 2 ports, good blood return, patent, no s/s any infiltration after flushed w/ NS, drsg cdi. Applied Betadine until air dry, then Sureprep to periwound, cover with nonadhesive foam and covering with Hua wrap secured with tape. Call light w/in reach. Side rails x2. MRSA contact in place. Will endorse to next nurse to cont care.
[2022-06-01 08:00] VITALS: BP_SYST 126
[2022-06-01 08:10] VITALS: BP_SYST 126
[2022-06-01] MEDS: FUROSEMIDE 40 MG TABLET PO SCH (09:03)
[2022-06-01] MEDS: CARVEDILOL 12.5 MG TABLET (COREG) PO SCH ×2 (09:04→20:55)
[2022-06-01] MEDS: POTASSIUM CHLORIDE 10 MEQ TAB.PRT.SR PO SCH ×3 (09:04→20:56)
[2022-06-01] MEDS: HYDROcodone/ACETAMIN 10-325 MG TAB PO PRN (09:05)
[2022-06-01] MEDS: ENOXAPARIN SODIUM 100 MG/ML SYRINGE SUBCUT SCH ×2 (09:05→22:33)
[2022-06-01] MEDS: metOLazone 5 MG TABLET PO SCH (09:10)
[2022-06-01] MEDS: VANCOMYCIN HCL 1,500 MG in NS 250 ML IV SCH ×2 (09:11→22:33)
[2022-06-01 12:00] VITALS: BP_SYST 122
[2022-06-01 16:00] VITALS: BP_SYST 139
[2022-06-01 20:00] VITALS: BP_SYST 118
--- NOTE | 2022-06-01 20:55 | NUR ---
Meds Scheduled meds given; Patient swallowed pills with water. Fingerstick BS was 124 mg/dL; no coverage.
--- NOTE | 2022-06-01 22:33 | NUR ---
Rommel Olivera Scheduled meds given. Reviewed side effects (Vanco-redness, itching, ringing in ears) and he verbalized understanding and further added that he's been taking meds. Joselin infusing well via PICC to CINDY, sign/sx of infiltration noted. Addendum: 06/02/22 at 0113 by Fifi Woo RN correction on last sentence above... NO sign/sx of infiltration noted.
--- NOTE | 2022-06-01 23:01 | NUR ---
Morphine Patient reporting severe pain to right inguinal area; Administered Morphine as ordered. Reviewed side effects; dizziness, light headed, constipation, fall risk. He reports last BM was two days ago and I offered/said can give stool softener and he said no. He also requested snacks, pudding and jello, which were provided.
[2022-06-02] VITALS: BP_SYST 117
[2022-06-02] MEDS: IPRATROPIUM/ALBUTEROL SULFATE 3 ML AMPUL.NEB (DUONEB) INH SCH ×4 (01:00→19:00)
[2022-06-02] MEDS: metroNIDAZOLE 500 mg/NS 100 ML IV SCH ×3 (06:19→21:09)
--- NOTE | 2022-06-02 07:05 | NUR ---
closing note wound care, dressing change and pictures taken, patient tolerated (updated details in MST charting), Needs met throughout the shift. Safety and isolation precautions observed, will endorse care
[2022-06-02 07:24] LABS: BASOPHILS # (AUTO) 0.1 K/uL (0.0-0.2); BASOPHILS % (AUTO) 0.8 % (0.0-2.0); EOSINOPHILS # (AUTO) 0.2 K/uL (0.0-0.4); EOSINOPHILS % (AUTO) 1.8 % (0.0-4.0); HEMATOCRIT 45.8 % (36-54); HEMOGLOBIN 15.6 g/dL (14.0-18.0); LYMPHOCYTES # (AUTO) 3.3 K/uL (1.0-5.5); LYMPHOCYTES % (AUTO) 31.5 % (20.5-51.5); MEAN CORPUSCULAR HEMOGLOBIN 28 pg (27-31); MEAN CORPUSCULAR HGB CONC 34 % (32-36); MEAN CORPUSCULAR VOLUME 82 fL (79.0-98.0); MONOCYTES # (AUTO) 1.1 K/uL (0.0-1.0); MONOCYTES % (AUTO) 10.2 % (1.7-9.3); NEUTROPHILS # (AUTO) 5.9 K/uL (1.8-7.7); NEUTROPHILS % (AUTO) 55.7 % (40.0-70.0); PLATELET COUNT (AUTO) 283 K/uL (130-430); RED BLOOD CELL COUNT(AUTO) 5.61 MIL/uL (4.2-6.2); RED CELL DISTRIBUTION WIDTH 17.4 % (9.0-15.0); WHITE BLOOD COUNT (AUTO) 10.6 K/uL (4.8-10.8)
[2022-06-02 07:29] LABS: CALCIUM 8.8 mg/dL (8.4-11.0); CREATININE 1.13 mg/dL (0.55-1.30); POTASSIUM 4.1 mmol/L (3.5-5.1)
--- NOTE | 2022-06-02 08:00 | NUR ---
Initial notes Awake, eating breakfast. Denies any pain or discomfort at this time. Wants to go home. Informed patient that we need to wait for antibiotics to be arranged for today. No distress. enc to call for help as needed.
[2022-06-02 08:01] VITALS: BP_SYST 120
--- NOTE | 2022-06-02 08:55 | NUR ---
Called dr. yepez, Dr. Tabor process description writer for dosage and frequency of IV abx for home.
[2022-06-02] MEDS: VANCOMYCIN HCL 1,500 MG in NS 250 ML IV SCH ×2 (09:16→21:12)
[2022-06-02] MEDS: POTASSIUM CHLORIDE 10 MEQ TAB.PRT.SR PO SCH ×3 (09:16→21:02)
[2022-06-02] MEDS: CARVEDILOL 12.5 MG TABLET (COREG) PO SCH ×2 (09:17→21:04)
[2022-06-02] MEDS: metOLazone 5 MG TABLET PO SCH (09:17)
[2022-06-02] MEDS: FUROSEMIDE 40 MG TABLET PO SCH (09:17)
[2022-06-02] MEDS: ENOXAPARIN SODIUM 100 MG/ML SYRINGE SUBCUT SCH (09:18)
--- NOTE | 2022-06-02 11:31 | NUR ---
Nutrition F/U RD reviewed patient's current EMR including diet hx, physician notes, nursing notes, pertinent labs/meds/procedures, care trends, and care activity. Short note d/t high workload. Current Diet Order/Nutrition Support: Consistent CCHO x 2 days, tolerating well Current PO intake (%): Good - 89% x 13 meals Skin Integrity: Lower leg discoloration Lower R-leg wound - s/p skin graft x 2 months: Wound with documented improvement, drainage present but no odor Dietitian Recommendations * Continue CCHO diet, as tolerated * Recommend initiate woundcare supplements: daily MVI, 250mg VIT C BID, 220mg zincate BID x 14 days, Nathan BID Follow-up Moderate Risk - F/U 3-5 days, by May CC, MPH, RDN
--- NOTE | 2022-06-02 11:41 | NUR ---
Dietitian Recommendations * Continue CCHO diet, as tolerated * Recommend initiate woundcare supplements: daily MVI, 250mg VIT C BID, 220mg zincate BID x 14 days, Nathan BID Please refer to Nutrition F/U for details, thanks! CC, MPH, RDN
[2022-06-02 12:01] VITALS: BP_SYST 106
--- NOTE | 2022-06-02 13:45 | NUR ---
Notes Watching TV. Denies any chest pain or shortness of breath.
--- NOTE | 2022-06-02 14:57 | NUR ---
Discharge Planning: MOP faxed pt referral to [facility] Amanda# [phone] pt order for home health, IV medication. DCP to follow up. Addendum: 06/02/22 at 1624 by Connie ZAVALA DCP faxed pt referral to [place] [phone] and [facility] [phone] not contracted
[2022-06-02] MEDS: MORPHINE 4 MG INJ. 4 MG/ML VIAL IVP PRN ×2 (15:28→21:05)
[2022-06-02 16:00] VITALS: BP_SYST 113
--- NOTE | 2022-06-02 16:30 | NUR ---
Notes- Pt really wants to go home and feel disappointed that home health has not been arrange yet at this time.
--- NOTE | 2022-06-02 16:55 | NUR ---
Notes Blood sugar is 187, patient refused insulin at this time. per patient He just eat jello and drink juice
--- NOTE | 2022-06-02 18:27 | NUR ---
closing notes eating dinner. Seen by Dr. francisco. pain is control. No distress
[2022-06-02 19:00] VITALS: BP_SYST 110
[2022-06-02 20:34] VITALS: BP_SYST 123
[2022-06-02] MEDS: APIXABAN 2.5 MG TABLET PO SCH (21:08)
[2022-06-03] MEDS: IPRATROPIUM/ALBUTEROL SULFATE 3 ML AMPUL.NEB (DUONEB) INH SCH ×4 (01:00→19:00)
[2022-06-03 03:32] VITALS: BP_SYST 110
[2022-06-03] MEDS: metroNIDAZOLE 500 mg/NS 100 ML IV SCH (06:05)
[2022-06-03 06:10] VITALS: BP_SYST 127
--- NOTE | 2022-06-03 07:32 | NUR ---
Patient stable last night, he received his scheduled medications,his morning CBGwas 124. He reports improvement and wants to go home. Endorsed to [facility] for continuity of care.
[2022-06-03 07:46] VITALS: BP_SYST 118
[2022-06-03] MEDS: metOLazone 5 MG TABLET PO SCH (08:12)
[2022-06-03] MEDS: POTASSIUM CHLORIDE 10 MEQ TAB.PRT.SR PO SCH ×3 (08:12→20:31)
[2022-06-03] MEDS: CARVEDILOL 12.5 MG TABLET (COREG) PO SCH ×2 (08:12→20:33)
[2022-06-03] MEDS: FUROSEMIDE 40 MG TABLET PO SCH (08:13)
[2022-06-03] MEDS: APIXABAN 2.5 MG TABLET PO SCH ×2 (08:14→20:33)
[2022-06-03] MEDS: MORPHINE 4 MG INJ. 4 MG/ML VIAL IVP PRN ×2 (08:16→22:24)
--- NOTE | 2022-06-03 08:21 | NUR ---
pt educated on the effects and side effects of his pain med and am meds. informed pt of the high risk of falling with these meds. pt verbalized understanding.
--- NOTE | 2022-06-03 08:49 | NUR ---
DISCHARGE PLANNING Called & spoke with Argelia at [facility], direct ph [phone] direct fax [phone], states to use [facility] for IV abx. For home health need to go thru their BX/BS contract. Contracted in [facility]: [facility], [facility], [facility], [facility], & [facility]. Updated rocael capacity planner. Addendum: 06/03/22 at 1500 by Romy Villeda RN Per Rocael capacity planner [facility] accepted and delivering IV abx tonight to home. [facility] who accepted & will follow pt tomorrow at home. Updated pt's nurse. Informed pt at bedside and agreeable, gave contact info for both. States already spoke with someone at [facility] and aware. -[facility] ph [phone] -[facility] ph [phone]
[2022-06-03] MEDS: VANCOMYCIN HCL 1,500 MG in NS 250 ML IV SCH (10:29)
[2022-06-03 11:03] VITALS: BP_SYST 122
[2022-06-03] MEDS ORDERED: IPRA3AMP9 INH (11:07)
[2022-06-03] MEDS ORDERED: APIX2.5T PO (11:07)
--- NOTE | 2022-06-03 14:40 | NUR ---
Discharge Planning: PITOP faxed pt referral to [facility] [phone] per [place] medication will be delivered around 10:00pm, [facility] [phone] start of care 06/04/2022. PITOP made CM and patient aware.
[2022-06-03 15:57] VITALS: BP_SYST 108
--- NOTE | 2022-06-03 16:05 | NUR ---
PT MADE AWARE THAT HE IS LEAVING TONIGHT AFTER TODAY'S DOSE OF VANCOMYCIN TO BE GIVEN AT AROUND 9PM. PT BLANKA AWARE OF THE DC AND WILL COME LATER TO PICK PT UP.
--- NOTE | 2022-06-03 19:50 | NUR ---
PM ASSESSMENT; -Pt will be discharge home after Vancomycin IVPB tonight will completed and Spouse awared and will pick pt up later. -Pt denies any chest pain,pain,sob,or any acute distress. CINDY PICC line with 2 ports, good blood return, patent, no s/s any infiltration after flushed w/ NS, drsg cdi. Taught & discussed poc,all safety measures, and to inform nurse if experiencing any distress or needs assistance to call nurse, pt verbalized understanding. Pt is able to use call light whenever needs assistance, pt shows good return demonstration. Drsg wound of rt LE cdi. Call light w/in reach. Side rails x2. MRSA contact in place. Cont to monitor pt.
[2022-06-03] MEDS: HYDROcodone/ACETAMIN 10-325 MG TAB PO PRN ×2 (20:31→20:37)
[2022-06-03] MEDS ORDERED: VANCOMYCIN HCL 1,250 MG in NS 250 ML IV SCH (22:00)
[2022-06-03 23:19] VITALS: BP_SYST 119
--- NOTE | 2022-06-03 23:40 | NUR ---
DISCHARGE PATIENT HOME -Pt denies any chest pain,pain,sob,or any acute distress. Discharging with CINDY PICC line with 2 ports good blood return and patent after flushed w/ bryan FRANCOIS. Assisting by Angélica via a w/c to private car with spouse accompanying to car. All belongings taken and discharge home instruction provided. Pt's condition stable, nonlabored breathing and no s/s any acute distress noted. Bryan ALFONSO wound changed prior discharge home. Addendum: 06/04/22 at 0320 by [facility], ONESIMO ECHOLS late entry- vital signs stable, see discharge chart.
== END 2022-06-03 23:42 | disposition home health service (06) | DRG 872 ==
LOC: SED 20:22 → STU 05-26 00:37 → SMU 06-03 23:26
PROVIDERS: ADMIT Internal Medicine; ATTEND Internal Medicine
DX: A41.9 Sepsis, unspecified organism (principal); I50.42 Chronic combined systolic (congestive) and diastolic (congestive) heart failure; E44.1 Mild protein-calorie malnutrition; I42.9 Cardiomyopathy, unspecified; I48.20 Chronic atrial fibrillation, unspecified; L97.919 Non-pressure chronic ulcer of unspecified part of right lower leg with unspecified severity; L03.115 Cellulitis of right lower limb; I11.0 Hypertensive heart disease with heart failure; Z53.9 Procedure and treatment not carried out, unspecified reason; K52.9 Noninfective gastroenteritis and colitis, unspecified; I87.2 Venous insufficiency (chronic) (peripheral); Z20.822 Contact with and (suspected) exposure to COVID-19; I87.8 Other specified disorders of veins; E11.9 Type 2 diabetes mellitus without complications; K40.90 Unilateral inguinal hernia, without obstruction or gangrene, not specified as recurrent; K42.9 Umbilical hernia without obstruction or gangrene; Z79.01 Long term (current) use of anticoagulants; Z79.899 Other long term (current) drug therapy; Z88.2 Allergy status to sulfonamides; Z95.0 Presence of cardiac pacemaker; Z86.718 Personal history of other venous thrombosis and embolism; Z86.711 Personal history of pulmonary embolism; Z68.28 Body mass index [BMI] 28.0-28.9, adult; Z91.14 Patient's other noncompliance with medication regimen
CPT/HCPCS: 36415; 36600; 71045; 73590-TC; 76376; 80048; 80053; 80061; 80202; 81003; 82803-TC; 82962; 83605; 83735; 83880; 84443; 84484; 85025; 85610-TC; 85730-TC; 86886; 86900; 86901; 87040; 87070-TC; 87081; 87186-TC; 93005; 93306; 93970; 94640; 94760; 96374; 96375; 99285; G0378; J1650; J1815; J2270; J2405; J2543; J3370; J3490; J7050; Q9964; Q9967

== ENCOUNTER 2022-06-16 23:59 | Inpatient (IN) | payer OTHER ==
[~2022-06-16] VITALS: Ht 188 cm; Wt 101.6 kg
[~2022-06-16 23:59] MED LIST changes: +APIX2.5T PO; +IPRA3AMP9 INH; -METR500T PO; -SULF1TAB48 PO; -WARF5TAB2 PO
[2022-06-17 00:26] VITALS: BP_SYST 137
--- NOTE | 2022-06-17 00:32 | NUR ---
WALKED IN C/O HERNIA PAIN SINCE YEST. +N/-V. NO MEDS TAKEN BUSINESS SUPPORT ASSISTANT. TAKING VANCOMYCIN PER HH VIA CINDY PICC. LAST TX IS TOMORROW
--- NOTE | 2022-06-17 00:32 | NUR ---
Patient to ER bed 1 to gown for evaluation. Side rails up. Report given to JORGE L ECHOLS.
--- NOTE | 2022-06-17 00:45 | NUR ---
PT PLACED IN BED 1 FROM [facility], ASSUME CARE OF PT BY JORGE L ECHOLS, REPORT GIVEN BY NABOR ECHOLS, PT BIB FOR MID ABD PAIN WITH NAUSEA, DENIES CP OR VOMITING. PT PLACED IN GOWN AND ON COMPUTING SERVICES DIRECTOR. HX- UMBILICAL HERNIA, TWO INGUINAL HERNIA, PT IS BEING TREATED FOR CELLULITIS TO RIGHT LOWER LEG. PT HAS RIGHT PICC LINE FOR ANTIBIOTIC TREATMENT OF VANCOMYCIN. HX- DM, HTN, PACEMAKER, CHF.
--- NOTE | 2022-06-17 01:00 | NUR ---
MANAN Garcia at bedside examining patient.
[2022-06-17] MEDS ORDERED: ONDANSETRON HCL 4 MG/2 ML VIAL IVP ONE (01:30)
[2022-06-17] MEDS ORDERED: NACL 0.9% 1,000 ML IV ONE (01:30)
[2022-06-17] MEDS ORDERED: MORPHINE 4 MG INJ. 4 MG/ML VIAL IVP ONE (01:30)
[2022-06-17 01:36] LABS: BASOPHILS # (AUTO) 0.1 K/uL (0.0-0.2); BASOPHILS % (AUTO) 1.5 % (0.0-2.0); EOSINOPHILS # (AUTO) 0.1 K/uL (0.0-0.4); EOSINOPHILS % (AUTO) 1.9 % (0.0-4.0); HEMATOCRIT 42.6 % (36-54); HEMOGLOBIN 14.1 g/dL (14.0-18.0); LYMPHOCYTES # (AUTO) 2.7 K/uL (1.0-5.5); LYMPHOCYTES % (AUTO) 33.8 % (20.5-51.5); MEAN CORPUSCULAR HEMOGLOBIN 28 pg (27-31); MEAN CORPUSCULAR HGB CONC 33 % (32-36); MEAN CORPUSCULAR VOLUME 83 fL (79.0-98.0); MONOCYTES # (AUTO) 0.8 K/uL (0.0-1.0); MONOCYTES % (AUTO) 9.5 % (1.7-9.3); NEUTROPHILS # (AUTO) 4.2 K/uL (1.8-7.7); NEUTROPHILS % (AUTO) 53.3 % (40.0-70.0); PLATELET COUNT (AUTO) 275 K/uL (130-430); RED BLOOD CELL COUNT(AUTO) 5.12 MIL/uL (4.2-6.2); WHITE BLOOD COUNT (AUTO) 7.9 K/uL (4.8-10.8)
[2022-06-17 01:51] LABS: CALCIUM 9.3 mg/dL (8.4-11.0); CREATININE 1.05 mg/dL (0.55-1.30); POTASSIUM 4.7 mmol/L (3.5-5.1)
[2022-06-17 01:56] LABS: ALBUMIN 3.1 g/dL (3.4-4.8); TOTAL BILIRUBIN 0.5 mg/dL (0.0-1.0)
--- NOTE | 2022-06-17 03:41 | NUR ---
Admit bed requested Patient will be admitted to care of . Admitted to MED SURG unit. Diagnosis UMBILICAL HERNIA Inpatient (Yes or No) YES Observation (Yes or No) NO Orientation concerns or request close to nursing station (Yes or No) NO Covid Status PENDING On vent or bipap NO Isolation requirements NO Needs a sitter NO From Home (Yes or if No enter name of facility) YES Requires Dialysis (Yes or No) NO Med Rec Completed (Yes of No) PENDING
[2022-06-17] MEDS ORDERED: MORPHINE 2 MG/ML INJ. SYRINGE IVP PRN ×2 (03:45→07:45)
[2022-06-17] MEDS ORDERED: ONDANSETRON HCL 4 MG/2 ML VIAL IVP PRN ×2 (03:45→07:45)
[2022-06-17] MEDS: NACL 0.9% 1,000 ML IV SCH ×2 (03:59→06:48)
--- NOTE | 2022-06-17 04:00 | NUR ---
pt admitted to med/surg, pt resting in bed, waiting for available bed.
--- NOTE | 2022-06-17 06:27 | NUR ---
Medication reconciliation completed with information provided by pt at the bedside. Any prior medication reconciliation on file was reviewed and corrected.
[2022-06-17 07:00] LABS: BILIRUBIN,URINE NEGATIVE (NEGATIVE); BLOOD, URINE NEGATIVE (NEGATIVE); CLARITY/URINE CLEAR (CLEAR); COLOR,URINE YELLOW (YELLOW); GLUCOSE,URINE NEGATIVE (NEGATIVE); KETONES,URINE NEGATIVE (NEGATIVE); LEUKOCYTE ESTERASE ,URINE NEGATIVE (NEGATIVE); NITRITE, URINE NEGATIVE (NEGATIVE); PROTEIN URINE NEGATIVE (NEGATIVE); UROBILINOGEN,URINE 0.2 (0.2-1.0)
--- NOTE | 2022-06-17 07:17 | NUR ---
REPORT GIVEN TO PARTH ECHOLS
[2022-06-17] MEDS ORDERED: ZOLPIDEM TARTRATE 5 MG TABLET PO PRN (07:45)
[2022-06-17] MEDS ORDERED: MUPIROCIN 2% TOPICAL OINTMENT 22 GM NS PRN (07:45)
[2022-06-17] MEDS ORDERED: POTASSIUM CHLORIDE 20 MEQ TAB.PRT.SR PO PRN (07:45)
[2022-06-17] MEDS ORDERED: LORazepam 2 MG/ML VIAL IVP PRN (07:45)
[2022-06-17] MEDS ORDERED: MAGNESIUM SULFATE 50 ML IV PRN (07:45)
[2022-06-17] MEDS ORDERED: ACETAMINOPHEN 325 MG TABLET PO PRN ×2 (07:45→08:30)
[2022-06-17] MEDS ORDERED: DOCUSATE SODIUM 100 MG CAPSULE PO PRN (07:45)
[2022-06-17] MEDS ORDERED: DEXTROSE 50% JECT 50 ML DISP.SYRIN IVP PRN (10:00)
[2022-06-17] MEDS ORDERED: INSULIN LISPRO SLIDING SCALE 100 UNITS/ML VIAL (humaLOG) SUBCUT PRN (10:00)
[2022-06-17] MEDS: CARVEDILOL 12.5 MG TABLET (COREG) PO SCH (10:20)
[2022-06-17] MEDS: MORPHINE 2 MG/ML INJ. SYRINGE IVP PRN ×2 (11:54→18:28)
--- NOTE | 2022-06-17 13:26 | NUR ---
Pt moved to bed H2
[2022-06-17] MEDS ORDERED: MORPHINE 2 MG/ML INJ. SYRINGE ONE (18:30)
--- NOTE | 2022-06-17 19:15 | NUR ---
ASSUME CARE OF PT AT THIS TIME BY JORGE L ECHOLS, PT IN H2, PT ADMIT FOR HERNIA PAIN, PT A/O X4, AMBULATORY TO THE RESTROOM, WAITING FOR ADMISSION BED.
--- NOTE | 2022-06-17 19:43 | NUR ---
Neurologist speaking to Dr Bautista at this time
--- NOTE | 2022-06-17 22:30 | NUR ---
Patient will be admitted to care of AMARA ECHOLS. Admitted to MED/SURG unit. Will go to room 100A. Belongings list completed. Complete and up to date summary report printed. SBAR report to be given at bedside with opportunity for questions.
[2022-06-17 23:45] VITALS: BP_SYST 128
--- NOTE | 2022-06-17 23:45 | NUR ---
ADMITTED PT FROM ER.PT IS AOX4.ON RA.NOT IN RESPIRATORY DISTRESS NOTED.R UPPER ARM PICC LINE NOTED.IVL L AC G 18, PATENT AND INTACT, NO SIGNS OF INFECTION AND INFILTRATION NOTED.R LEG VENOUS STASIS ULCER NOTED, VERIFIED WOUND WITH ONESIMO GAONA.ADMISSION CARE RENDERED.BED IN LOWEST POSITION.BEDSIDE TABLE AND CALL LIGHT ARE WITHIN REACH.
[2022-06-18] VITALS: BP_SYST 132
[2022-06-18 00:03] VITALS: BP_SYST 128
[2022-06-18] MEDS: CARVEDILOL 12.5 MG TABLET (COREG) PO SCH ×3 (00:09→20:31)
--- NOTE | 2022-06-18 05:17 | NUR ---
Consultation Paged Reason for Consultation: Umbilical Hernia Was consult called: Y Person who was notified: Denise Consulting Physician: Ulises Aguayo Ordering Physician: Dr. Wray
[2022-06-18 06:57] LABS: BASOPHILS % (AUTO) 0.7 % (0.0-2.0); EOSINOPHILS # (AUTO) 0.2 K/uL (0.0-0.4); EOSINOPHILS % (AUTO) 2.7 % (0.0-4.0); HEMOGLOBIN 13.7 g/dL (14.0-18.0); LYMPHOCYTES # (AUTO) 2.9 K/uL (1.0-5.5); LYMPHOCYTES % (AUTO) 39.2 % (20.5-51.5); MEAN CORPUSCULAR HEMOGLOBIN 28 pg (27-31); MEAN CORPUSCULAR HGB CONC 33 % (32-36); MEAN CORPUSCULAR VOLUME 82 fL (79.0-98.0); MONOCYTES # (AUTO) 0.6 K/uL (0.0-1.0); MONOCYTES % (AUTO) 8.4 % (1.7-9.3); NEUTROPHILS # (AUTO) 3.6 K/uL (1.8-7.7); PLATELET COUNT (AUTO) 228 K/uL (130-430); RED BLOOD CELL COUNT(AUTO) 4.98 MIL/uL (4.2-6.2); WHITE BLOOD COUNT (AUTO) 7.3 K/uL (4.8-10.8)
[2022-06-18 07:12] LABS: CALCIUM 8.7 mg/dL (8.4-11.0); CREATININE 1.05 mg/dL (0.55-1.30); POTASSIUM 4.2 mmol/L (3.5-5.1)
[2022-06-18 08:00] VITALS: BP_SYST 118
[2022-06-18] MEDS ORDERED: LORazepam 1 MG TABLET PO PRN (10:45)
--- NOTE | 2022-06-18 10:47 | NUR ---
CONSULT SURGERY UMBILICAL HERNIA AMY LAI [phone] S/W [facility] OFFICE
--- NOTE | 2022-06-18 11:18 | NUR ---
called at this time and orders to d/c all blood thinners and cardiac low fat diet at time.
[2022-06-18 12:00] VITALS: BP_SYST 110
[2022-06-18] MEDS: PIPERACILLIN/TAZO 3.375/DEX-IS 50 ML IV SCH (14:00)
[2022-06-18 16:00] VITALS: BP_SYST 122
[2022-06-18] MEDS: MORPHINE 2 MG/ML INJ. SYRINGE IVP PRN (20:30)
[2022-06-19] VITALS: BP_SYST 118
[2022-06-19] MEDS: PIPERACILLIN/TAZO 3.375/DEX-IS 50 ML IV SCH ×4 (00:06→22:00)
[2022-06-19] MEDS: MORPHINE 2 MG/ML INJ. SYRINGE IVP PRN ×3 (05:33→17:06)
[2022-06-19 07:22] LABS: CALCIUM 8.4 mg/dL (8.4-11.0); CREATININE 1.13 mg/dL (0.55-1.30)
--- NOTE | 2022-06-19 08:00 | NUR ---
OK to give Coreg
[2022-06-19] MEDS: CARVEDILOL 12.5 MG TABLET (COREG) PO SCH ×2 (09:16→21:00)
[2022-06-19 10:39] LABS: INR 1.1 (0.80-1.20); PROTHROMBIN TIME 10.7 SECS (9.5-12.5)
[2022-06-19 11:38] LABS: HEMOGLOBIN 13.7 g/dL (14.0-18.0); RED BLOOD CELL COUNT(AUTO) 4.89 MIL/uL (4.2-6.2)
[2022-06-19 11:40] LABS: BASOPHILS % (AUTO) 1.2 % (0.0-2.0); EOSINOPHILS % (AUTO) 1.9 % (0.0-4.0); LYMPHOCYTES # (AUTO) 2.9 K/uL (1.0-5.5); LYMPHOCYTES % (AUTO) 38.9 % (20.5-51.5); MEAN CORPUSCULAR HEMOGLOBIN 28 pg (27-31); MEAN CORPUSCULAR HGB CONC 33 % (32-36); MEAN CORPUSCULAR VOLUME 84 fL (79.0-98.0); MONOCYTES % (AUTO) 10.3 % (1.7-9.3); NEUTROPHILS # (AUTO) 3.6 K/uL (1.8-7.7); NEUTROPHILS % (AUTO) 47.7 % (40.0-70.0); PLATELET COUNT (AUTO) 224 K/uL (130-430)
[2022-06-19 11:41] LABS: BASOPHILS # (AUTO) 0.1 K/uL (0.0-0.2); EOSINOPHILS # (AUTO) 0.1 K/uL (0.0-0.4); MONOCYTES # (AUTO) 0.8 K/uL (0.0-1.0); WHITE BLOOD COUNT (AUTO) 7.6 K/uL (4.8-10.8)
[2022-06-19 12:15] VITALS: BP_SYST 127
[2022-06-19 15:24] VITALS: BP_SYST 133
--- NOTE | 2022-06-19 17:55 | NUR ---
Patient left to OR with OR staff
[2022-06-19] MEDS ORDERED: BUPIVACAINE LIPOSOME/PF 266 MG/20 ML VIAL INFIL ONE (20:02)
[2022-06-19] MEDS ORDERED: PIPERACILLIN/TAZOBACTAM 3.375 GM/VIAL (ZOSYN) IV ONE (22:15)
[2022-06-19] MEDS ORDERED: ONDANSETRON HCL 4 MG/2 ML VIAL IVP PRN (23:00)
[2022-06-19] MEDS ORDERED: ACETAMINOPHEN I.V. 1000 MG 100 ML IV ONE (23:00)
[2022-06-19] MEDS ORDERED: METOCLOPRAMIDE HCL 10 MG/2 ML VIAL IVP PRN (23:00)
[2022-06-19] MEDS ORDERED: fentaNYL CITRATE/PF 100 MCG/2 ML AMP IVP ONE (23:00)
[2022-06-20] VITALS (9 sets, daily range): BP systolic 114–145
[2022-06-20] MEDS: MORPHINE 2 MG/ML INJ. SYRINGE IVP PRN ×5 (00:56→20:05)
--- NOTE | 2022-06-20 01:14 | NUR ---
Received the patient from PACU. No acute distress noted. KRISTEN drain intact. Dressing to the upper half of the abdomen has red shadow on it. Will continue to monitor. Addendum: 06/20/22 at 0120 by Araceli Griffin RN RN Received the patient from PACU. No acute distress noted. KRISTEN drain intact. Dressing to the top half of the abdomen has a red shadow on it. Will continue to monitor.
[2022-06-20] MEDS: PIPERACILLIN/TAZO 3.375/DEX-IS 50 ML IV SCH ×3 (04:32→20:02)
--- NOTE | 2022-06-20 06:44 | NUR ---
Patient in bed. No acute distress noted. Will continue to monitor.
--- NOTE | 2022-06-20 07:30 | NUR ---
OPENING NOTE Patient awake and alert, sitting up in bed. No sign of distress, breathing is nonlabored and even. Patient complaining of pain 10/10 in his abdomen. Educated patient on when he will be able to receive his next dose of pain medication, patient agreed and verbalized understanding. Provided comfort measures. All needs met at this time and safety checks made.
[2022-06-20 07:46] LABS: BASOPHILS # (AUTO) 0.1 K/uL (0.0-0.2); BASOPHILS % (AUTO) 0.7 % (0.0-2.0); HEMATOCRIT 43.3 % (36-54); LYMPHOCYTES # (AUTO) 1.1 K/uL (1.0-5.5); MEAN CORPUSCULAR VOLUME 84 fL (79.0-98.0); MONOCYTES # (AUTO) 0.6 K/uL (0.0-1.0); MONOCYTES % (AUTO) 6.8 % (1.7-9.3); NEUTROPHILS # (AUTO) 7.8 K/uL (1.8-7.7); NEUTROPHILS % (AUTO) 81.5 % (40.0-70.0); PLATELET COUNT (AUTO) 231 K/uL (130-430); RED BLOOD CELL COUNT(AUTO) 5.14 MIL/uL (4.2-6.2); RED CELL DISTRIBUTION WIDTH 18.2 % (9.0-15.0); WHITE BLOOD COUNT (AUTO) 9.6 K/uL (4.8-10.8)
[2022-06-20 08:33] LABS: CALCIUM 8.7 mg/dL (8.4-11.0); CREATININE 1.2 mg/dL (0.55-1.30); POTASSIUM 4.8 mmol/L (3.5-5.1)
[2022-06-20] MEDS: CARVEDILOL 12.5 MG TABLET (COREG) PO SCH ×2 (08:53→20:03)
--- NOTE | 2022-06-20 10:29 | NUR ---
ROUNDS Patient in bed resting, states that his pain has been hovering at an 8/10. KRISTEN drain is patent, 40mL removed. Patient has had an excellent appetite. All needs met at this time and safety checks made.
--- NOTE | 2022-06-20 11:50 | NUR ---
BLOOD SUGAR Patient's afternoon blood sugar is 169. Patient states he never takes insulin at home. Patient refusing Lispro coverage.
--- NOTE | 2022-06-20 13:43 | NUR ---
Scheduled IV abx given per order. Patient medicated for 10/10 abdominal pain. Patient stable at this time.
--- NOTE | 2022-06-20 14:15 | NUR ---
Patient states that pain began to subside; then he worked with PT and his pain in now 04/20. Patient stable at this time.
[2022-06-20 19:07] LABS: HEMOGLOBIN 14.3 g/dL (14.0-18.0); MEAN CORPUSCULAR HEMOGLOBIN 27 pg (27-31); MEAN CORPUSCULAR HGB CONC 32 % (32-36)
--- NOTE | 2022-06-20 19:09 | NUR ---
CLOSING NOTE Patient sitting up at the side of the bed eating dinner. Patient has had an excellent appetite today. Patient has been ambulating with a walker around his room, gait is steady. Encouraged the patient to stay active and take deep breaths for lung expansion. KRISTEN drain is intact and with moderate output, 80mLs removed on day shift. Dressings are clean, dry, and intact. All needs met at this time and safety checks made. Endorsed to night court magistrate nurse.
--- NOTE | 2022-06-20 22:14 | NUR ---
Patient in bed. No acute distress noted. Complaint of pain prn given. Will continue to monitor.
[2022-06-21] MEDS: MORPHINE 2 MG/ML INJ. SYRINGE IVP PRN ×5 (00:39→16:03)
[2022-06-21] MEDS: PIPERACILLIN/TAZO 3.375/DEX-IS 50 ML IV SCH ×2 (04:47→13:36)
[2022-06-21 07:20] VITALS: BP_SYST 140
[2022-06-21 07:51] LABS: BASOPHILS # (AUTO) 0.1 K/uL (0.0-0.2); BASOPHILS % (AUTO) 0.9 % (0.0-2.0); EOSINOPHILS # (AUTO) 0.5 K/uL (0.0-0.4); EOSINOPHILS % (AUTO) 4.8 % (0.0-4.0); HEMATOCRIT 36.1 % (36-54); LYMPHOCYTES # (AUTO) 2.2 K/uL (1.0-5.5); LYMPHOCYTES % (AUTO) 22.8 % (20.5-51.5); MEAN CORPUSCULAR VOLUME 83 fL (79.0-98.0); MONOCYTES # (AUTO) 0.9 K/uL (0.0-1.0); NEUTROPHILS % (AUTO) 62.5 % (40.0-70.0); PLATELET COUNT (AUTO) 179 K/uL (130-430); RED BLOOD CELL COUNT(AUTO) 4.37 MIL/uL (4.2-6.2); RED CELL DISTRIBUTION WIDTH 17.8 % (9.0-15.0); WHITE BLOOD COUNT (AUTO) 9.6 K/uL (4.8-10.8)
[2022-06-21 08:05] LABS: CALCIUM 8.2 mg/dL (8.4-11.0); CREATININE 1.16 mg/dL (0.55-1.30); POTASSIUM 4.1 mmol/L (3.5-5.1)
[2022-06-21] MEDS: CARVEDILOL 12.5 MG TABLET (COREG) PO SCH ×2 (08:45→21:30)
[2022-06-21] MEDS ORDERED: DOCUSATE SODIUM 100 MG CAPSULE PO ONE (11:00)
--- NOTE | 2022-06-21 11:05 | NUR ---
DR caban was informed pt pt was discharged by attending MD. Dr Caban said he will remove the KRISTEN after lunch.
[2022-06-21 11:28] VITALS: BP_SYST 114
[2022-06-21 15:33] VITALS: BP_SYST 112
[2022-06-21 15:35] VITALS: BP_SYST 112
--- NOTE | 2022-06-21 19:24 | NUR ---
Dr Caban was here and patient said MD mcgee'd. his picc and leticia drain and that MD will call in his pain meds to his pharmacy. Pt endorsed to night larry dee as pt is still waiting for his to pick him up.
[2022-06-21 19:39] VITALS: BP_SYST 131
[2022-06-21] MEDS ORDERED: DOCUSATE SODIUM 100 MG CAPSULE PO SCH (21:00)
--- NOTE | 2022-06-21 22:10 | NUR ---
D/C Patient Cecille arrived. Patient given medication reconciliation form and D/C instructions. Exit Care provided. Patient verbalized understanding. MD discussed with patient the results and treatment provided. Ambulatory with steady gait with FWW for discharge to home. Patient in stable condition, ID band removed. PICC line and KRISTEN drain removed per day nurse, intact and dressing applied, no active bleeding. Pain Rx to be called in per MD tomorrow. Patient educated on pain management. Pt to F/U with surgeon in 1-2 weeks. All belongings sent with patient.
--- NOTE | 2022-06-23 12:28 | NUR ---
New Car Get Ready Mechanic TREATMENT SUPERVISOR made a Post Discharge Follow Up Phone Call to former ptKasie Franks with the phone number listed. TREATMENT SUPERVISOR called several times and even called his 's number. 's number, mailbox was full and Golden's number is not working.
== END 2022-06-21 22:02 | disposition home or self-care (01) | DRG 351 ==
LOC: SED 23:59 → SMU 06-17 03:36
PROVIDERS: ADMIT Family Medicine; ATTEND Family Medicine
PROC: 0VBG0ZZ Excision of Left Spermatic Cord, Open Approach (ICD-10-PCS; 2022-06-19)
PROC: 0WQF0ZZ Repair Abdominal Wall, Open Approach (ICD-10-PCS; 2022-06-19)
PROC: 8E0W0CZ Robotic Assisted Procedure of Trunk Region, Open Approach (ICD-10-PCS; 2022-06-19)
PROC: 0YUA0JZ Supplement Bilateral Inguinal Region with Synthetic Substitute, Open Approach (ICD-10-PCS; principal; 2022-06-19 18:00)
DX: K40.20 Bilateral inguinal hernia, without obstruction or gangrene, not specified as recurrent (principal); E44.1 Mild protein-calorie malnutrition; I42.9 Cardiomyopathy, unspecified; I48.20 Chronic atrial fibrillation, unspecified; I50.32 Chronic diastolic (congestive) heart failure; K43.0 Incisional hernia with obstruction, without gangrene; K42.9 Umbilical hernia without obstruction or gangrene; K66.0 Peritoneal adhesions (postprocedural) (postinfection); I87.8 Other specified disorders of veins; E11.9 Type 2 diabetes mellitus without complications; D17.9 Benign lipomatous neoplasm, unspecified; N43.3 Hydrocele, unspecified; Z79.01 Long term (current) use of anticoagulants; Z79.899 Other long term (current) drug therapy; Z86.711 Personal history of pulmonary embolism; Z86.718 Personal history of other venous thrombosis and embolism; Z95.0 Presence of cardiac pacemaker; Z68.28 Body mass index [BMI] 28.0-28.9, adult; Z88.2 Allergy status to sulfonamides
CPT/HCPCS: 36415; 71046-TC; 76376; 80048; 80053; 81003; 82962; 83690; 83735; 85025; 85610-TC; 85730-TC; 87081; 88302; 93005; 96361; 96374; 96375; 99285; C9290; J0131; J2270; J2405; J2543